=== PATIENT | female | born 1950 | race Caucasian/White ===

== ENCOUNTER 2022-08-06 22:45 | Emergency (ER) | payer MEDICARE ==
[2022-08-06] MEDS ORDERED: Lidocaine 1% with EPINEPHrine 1:100,000 10 ML MDV INJECT ONE (23:07)
[2022-08-06] MEDS ORDERED: Lidocaine 1% 50 ML MDV INJECT STA (23:13)
== END 2022-08-07 00:59 | disposition home or self-care (01) ==
LOC: JD.ED 22:45
DX: S01.112A Laceration without foreign body of left eyelid and periocular area, initial encounter (principal); I10 Essential (primary) hypertension; Z86.16 Personal history of COVID-19; W22.09XA Striking against other stationary object, initial encounter
CPT/HCPCS: 12013; 99282; J2001